=== PATIENT | male | born 1955 | race Two or more races ===

== ENCOUNTER 2017-10-22 08:05 | Observation (INO) | payer BC ==
[2017-10-22] MEDS ORDERED: Diazepam TAB(*) 5 MG ONE (08:55)
[2017-10-22] MEDS ORDERED: diPHENhydraMINE PO* 25 MG ONE (08:55)
[2017-10-22] MEDS ORDERED: fentaNYL* 50 MCG/ML 2 ML VIAL (100 MCG VIAL) ONE (09:22)
[2017-10-22] MEDS ORDERED: Lidocaine 1% INJ* 10 MG/ML 30 ML SDV ONE (09:23)
[2017-10-22] MEDS ORDERED: Heparin 2 UNITS/ML IVPREMIX* 3,000 ML IV ONE (09:23)
[2017-10-22] MEDS ORDERED: Midazolam* 1 MG/ML 10 ML VIAL (10 MG) ONE (09:24)
[2017-10-22] MEDS ORDERED: Heparin(*) 1000 UNIT/ML 10 ML VIAL CATH LAB IV ONE (09:25)
[2017-10-22] MEDS ORDERED: VERAPAMIL 2.5 MG/ML 2 ML VIAL ** 5 mg/2 ml ONE (09:25)
[2017-10-22] MEDS ORDERED: nitroGLYCERIN DRIP* 25,000 MCG/250 ML BTL ONE (09:26)
[2017-10-22] MEDS ORDERED: Iodixanol* (CONTRAST) 320 MG/ML 100 ML SDV ONE ×3 (09:26→10:48)
[2017-10-22] MEDS ORDERED: Ticagrelor* 90 MG TAB PO ONE (10:06)
[2017-10-22] MEDS ORDERED: Bivalirudin(*) 250 MG VIAL ONE ×2 (10:17→10:19)
[2017-10-22] MEDS ORDERED: NS 0.9% 1000 ML* 2,000 ML IV ONE (11:29)
[2017-10-22] MEDS ORDERED: Acetaminophen TAB* 325 MG PO PRN (11:29)
[2017-10-22] MEDS ORDERED: Docusate CAP* 100 MG PO PRN (11:29)
[2017-10-22] MEDS ORDERED: Nitroglycerin TAB 0.4 MG* 0.4 MG TAB SL PRN (11:29)
[2017-10-22] MEDS ORDERED: Ondansetron INJ* 2 MG/ML VIAL IV PRN (11:29)
[2017-10-22] MEDS ORDERED: Atorvastatin* 80 MG TAB PO ONE (11:53)
[2017-10-22] MEDS ORDERED: Atorvastatin* 80 MG TAB PO SCH (17:00)
[2017-10-22] MEDS: Ticagrelor* 90 MG TAB PO SCH (20:31)
[2017-10-23 05:13] LABS: ABS Basophils 0 10^3/ul (0-0.2); ABS Eosinophils 0.1 10^3/ul (0-0.6); ABS Lymphocytes 1.4 10^3/ul (1.0-4.8); ABS Monocytes 0.7 10^3/ul (0-0.8); ABS Neutrophils 6.6 10^3/ul (1.5-7.7); ABS Nucleated RBC 0 10^3/ul; Eosinophil % 1.4 % (0-6); Hematocrit 42 % (42-52); Lymphocyte % 15.4 % (25-47); Mean Corpuscular HGB Conc 35 g/dl (31-36); Mean Corpuscular Hemoglobin 30 pg (27-31); Mean Corpuscular Volume 85 fL (80-94); Mean Platelet Volume 8.9 um3 (7.4-10.4); Nucleated Red Blood Cells % 0.2; Platelet Count 171 10^3/ul (150-450); Red Blood Count 5.01 10^6/ul (4.0-5.4); Red Cell Distribution Width 13 % (10.5-15); White Blood Count 8.8 10^3/ul (3.5-10.8)
[2017-10-23 05:35] LABS: EGFR Non-African American 62.1 (>60)
[2017-10-23] MEDS ORDERED: Omeprazole CAP* 20 MG PO SCH (07:30)
[2017-10-23] MEDS ORDERED: Metoprolol Succinate XL TAB* 25 MG PO SCH (09:00)
[2017-10-23] MEDS ORDERED: Captopril TAB* 12.5 MG PO SCH (09:00)
[2017-10-23] MEDS ORDERED: Aspirin 81 mg CHEW TAB* 81 MG TAB.CHEW PO SCH (09:00)
[2017-10-23] MEDS: Ticagrelor* 90 MG TAB PO SCH (09:05)
[2017-10-23 11:11] VITALS: BP 123/72
--- NOTE | 2017-10-24 03:28 | CATH ---
Cc: Dr. Harish Campbell; Dr. Rodolfo Muhammad. CARDIAC CATHETERIZATION AND INTERVENTIONAL REPORT: DATE OF PROCEDURE: 10/22/2017 INDICATION FOR THE PROCEDURE: The patient with progressive chest discomfort with markedly abnormal resting echocardiogram suggesting anterior wall hypokinesis with EF 30% to 35% now for cardiac catheterization to assess for the presence of underlying coronary artery disease. The procedure was left heart catheterization, left ventriculography, coronary arteriography, primary stenting of proximal left anterior descending artery with a 4.0 x 20 mm long Synergy drug-eluting stent and balloon angioplasty and placement of a 2.25 x 20 mm long Synergy drug-eluting stent in the first obtuse marginal branch. The patient was interviewed and examined in the holding area where the risks and benefits were explained. He understood them and wished to proceed. APPROACH: Under ultrasound assessment in the holding area, the right radial artery was found to be acceptable as an approach. EQUIPMENT UTILIZED: 1. Right radial artery sheath, a 6-Tristanian Glidesheath. 2. Diagnostic coronary catheters included a 5-Tristanian TIG4 catheter and a 5- Tristanian FL 3.5 curved JL diagnostic catheter. 3. Left heart catheterization catheter, a 5-Tristanian PIG Performa radial catheter. 4. Exchange wire with a Duran curved 260 cm length exchange wire. 5. Interventional guide catheter was a 6 Tristanian IL 3.5 Heartrail III catheter, a 6- Tristanian LBU 3.5 catheter, and a 6-Tristanian VL 3.5 catheter. 6. Interventional guidewire was a All Star 190 length guidewire. 7. Predilation for obtuse marginal branch balloon - a NC Emerge 2.0 x 12 mm balloon catheter. 8. Stents placed - a 2.25 x 20 mm long Synergy stent in first obtuse marginal branch, a 4.0 x 20 mm long Synergy stent in proximal LAD. 9. Post stent deployment balloon inflation catheters, a 4.0 x 12 mm long NC Emerge balloon, a 2.25 x 12 mm long NC Emerge balloon. MEDICATIONS GIVEN: Included: 1. Radial artery cocktail including 3000 units of heparin, 3 mg of Verapamil and 300 mcg of nitroglycerin intraarterial. 2. Brilinta 180 mg orally. 3. Angiomax bolus and Angiomax drip. 4. Intracoronary nitroglycerin. DESCRIPTION IN DETAIL: The patient was brought into the cardiovascular laboratory where a formal time-out was performed. He was prepped and draped in sterile fashion. The right radial artery area was anesthetized with 1% lidocaine and under ultrasound guidance the right radial artery was entered and the Glidesheath was placed. Diagnostic coronary arteriography was performed utilizing the 5 Tristanian TIG4 and the 5-Tristanian FL 3.5 curve Shabnam left coronary catheter. Following this, left heart catheterization was performed utilizing the 5-Tristanian pigtail catheter and left ventriculography was performed utilizing a total 26 cc of Visipaque dye at a rate of 13 cc per second. Following this, decision was made to intervene into the left coronary artery, proximal LAD, and first obtuse marginal branch. The patient's ACT was checked and found to be subtherapeutic and as such an Angiomax bolus and Angiomax drip was started. The patient received Brilinta therapy. Guiding views were obtained initially with the Heartrail IL 3.5 curved catheter. This was then exchanged for 6- Tristanian LBU 3.5 curved catheter, the All Star wire was advanced down the left anterior descending artery and the Synergy 4.0 x 20 mm long drug- eluting stent was deployed with post-deployment inflation made utilizing the NC Emerge balloon 4.0 x 12 mm with high pressures. Following this, the guide catheter was exchanged for the Heartrail 6 Tristanian IL 3.5 catheter. The All Star wire was advanced into the diagonal branch. Nitroglycerin was given and following this the NC Emerge 2.0 x 12 mm long balloon was inserted into the first obtuse marginal branch and balloon angioplasty was performed followed by the 2.25 x 20 mm long Synergy drug-eluting stent post-dilated with a 2.25 x 12 mm long NC Emerge balloon to high pressures. The artery was then assessed for final result. Following this, the guide catheter was removed. On removing the sterile dressing over the right radial artery, the right radial artery sheath was inadvertently pulled out and immediate pressure was placed. The Vasc-Band was then able to be placed for hemodynamic control, the reverse Barbnikki. The total contrast used was 250 cc of Visipaque dye, the radiation exposure included 34.5 minutes of fluoro time, the air kerma radiation was 2990 milligray. The DAP radiation was 18,122 microgray per meter square. RESULTS: HEMODYNAMIC DATA: Left heart catheterization: Central aortic pressure recorded 122/74 with a mean in 94, left ventricular pressure 120, left ventricular end diastolic pressure was 19. LEFT VENTRICULOGRAPHY: Performed in the RICE projection revealed moderate global hypokinesis to the mid and distal anterior wall and apical region. There is preservation of the inferior wall. The overall ejection fraction appeared to be approximately 40%. CORONARY ARTERIOGRAPHY: A. Right coronary artery - the right coronary artery was a dominant vessel supplying to PDA and a thin first posterior left ventricular branch. The proximal portion of the right coronary artery had a 35% to 40% obstruction noted. The mid segment had a 35% narrowing noted. The proximal portion of the posterior descending artery had a 35% to 40% narrowing noted. B. Left coronary artery: 1. Left main - short nature and widely patent. 2. Left anterior descending artery - the left anterior descending artery had diffuse disease in its proximal section tapering to a 90% obstruction. Past this point in the left anterior descending artery, there was mild post obstruction dilatation, then tapering to the same caliber as the rest of the left anterior descending artery. The first diagonal branch was a bifurcating vessel as well as the second diagonal branch there was no significant disease seen within those vessels. 3. Circumflex artery - a nondominant artery supplying a first obtuse marginal branch which bifurcated in its proximal portion to a thin lower branch and a larger superior branch which bifurcated in its distal portion. There was a long segment of 95% stenosis in the proximal portion. The continuation of the circumflex supplied several small caliber vessels ending in moderate sized low lying obtuse marginal branch which had an area of 65% to 70% stenosis seen. INTERVENTIONS TO PROXIMAL LEFT ANTERIOR DESCENDING ARTERY: Successful reduction of critical 90% blockage with primary stenting and placement of a 4.0 x 20 mm long Synergy drug-eluting stent dilated to 4.2 mm with BRENT-3 flow, 0% residual stenosis, no dissection seen. INTERVENTION INTO FIRST OBTUSE MARGINAL BRANCH: Successful reduction of critical long 95% proximal stenosis with balloon angioplasty and placement of a 2.25 x 20 mm long Synergy drug-eluting stent postdilated to 2.3 to 2.35 mm with no dissection seen, 0% residual stenosis. OVERALL ASSESSMENT: Moderate left ventricular systolic dysfunction, focal in nature to the anterior wall with successful intervention into the proximal LAD as well as first obtuse marginal branch. Of note, the low lying obtuse marginal branch had a lesion that may indeed be significant but at this point in time, this will be treated medically with followup with Dr. Campbell with consideration for either stress testing or FFR guided intervention. The patient's beta-kerri will be continued and institution of low-dose SAMANTHA inhibitor will be started as well. Followup will be with Dr. Harish Campbell, the patient's primary senior sales manager. [id number]/[facility] #: [id number] [facility]
--- NOTE | 2017-10-24 07:18 | DS ---
CC: Dr. Harish campbell; Dr. Muhammad DISCHARGE SUMMARY: DATE OF ADMISSION: 10/22/17. DATE OF DISCHARGE: 10/23/17. FINAL DIAGNOSIS: Acute coronary syndrome. SECONDARY DIAGNOSES: Include: 1. Stenotic coronary artery disease. 2. Gastroesophageal reflux. DISCHARGE MEDICATIONS: 1. Aspirin 81 mg a day. 2. Atorvastatin 80 mg once a day. 3. Captopril 6.25 mg twice a day. 4. Desmopressin 0.1 mg at bedtime. 5. Krill oil 500 mg a day. 6. Metoprolol succinate 25 mg once a day. 7. Nitroglycerin as needed. 8. Omeprazole 20 mg capsules daily. 9. Ticagrelor 90 mg twice a day. HOSPITAL COURSE: The patient is a pleasant 62-year-old gentleman, known to our group through Dr. Sudhakar Campbell, who had evaluated him for symptoms suggestive of progressive angina pectoris and original ly a stress echo was scheduled. However, the resting images on echocardiography showed the presence of anterior wall motion abnormality and overall ejection fraction in the 30 to 35% range. Given this , he was referred for cardiac catheterization. Cardiac catheterization was performed on 10/22/17 demonstrating a moderate left ventricular systolic dysfunction EF better at approximately 40% with moderate hypokinesis of the anterior and apical regio n. His coronary arteries revealed a diffusely diseased proximal LAD with its most severe segment santy ng approximately 90% stenosed. The first obtuse marginal branch had a proximal somewhat long segment of 95% stenosis. The distal circumflex showed a 65% to 70% blockage at the beginning of last low ly ing obtuse marginal branch. The right coronary artery had mild to moderate proximal disease. He underwent successful stenting to the proximal LAD with a 4.0 x 20 mm long Synergy drug-eluting matthew nt post dilated to 4.2 mm and the first obtuse marginal branch undergoing balloon angioplasty and matthew nting with a 2.25 x 20 mm long Synergy drug-eluting stent post dilated to 2.3 to 2.35 mm. He was up and about and captopril therapy was added low dose 6.25 twice a day to be titrated as an outpatient b samina Campbell. PHYSICAL EXAMINATION: On the day of discharge, vital signs revealed blood pressure 123/72, pulse was 64 and regular, respirations 22, O2 saturation 95% on room air. Neck was supple. There was no incre ased JVP. Carotid with good upstroke and volume without bruits. Conjunctivae are pink. Sclerae elodia ar. Lungs reveal no accessory muscle usage. There was good excursion. Lungs were clear to A and P. Heart reveals no visible heaves, no palpable heaves or thrill. Normal S1 and S2 with no significant systolic or diastolic murmur. Abdomen was soft, nontender. Extremities without edema. Neuro: The patient is alert, oriented with normal mentation. Musculoskeletal: The patient walks with normal ga it. Psychiatric: The patient with normal affect. The right radial artery area was well healed and h e had excellent antegrade flow down it. LABORATORY DATA: Laboratory results on the day of discharge, hemoglobin and hematocrit of 15 and 42, with a platelet count 171,000. Sodium 137, potassium 3.9, chloride 106, bicarb 24. BUN and creatin ine of 17 and 1.18. Of note, his pre cath creatinine was 1.24. EKG done on the day of discharge von wed sinus rhythm, heart rate 63. There were biphasic T-waves in V3 and V4 and T-wave inversion in aV L. These changes were less than the prior EKG precardiac catheterization. He has a scheduled follow up appointment with Dr. Harish Campbell on 10/30/17 at 8:30 a.m., at the [facility]. Ongoing cardiac management will be under the guidance of Dr. Harish Segura and, his primary data communications software consultant. [id number]/[facility] #: [id number]
== END 2017-10-23 11:45 | disposition home or self-care (01) ==
LOC: CHICATH 08:05 → INTOOBSV 10:24 → ICU 10:24
PROVIDERS: ADMIT Internal Medicine Cardiovascular Disease; ATTEND Internal Medicine Cardiovascular Disease
DX: I25.10 Atherosclerotic heart disease of native coronary artery without angina pectoris (principal); K21.9 Gastro-esophageal reflux disease without esophagitis; Z79.82 Long term (current) use of aspirin
CPT/HCPCS: 36415; 76937; 80053; 80061; 85025; 87641; 93005; 93458; A9270-GY; C1725; C1769; C1876; C1887; C9600-LD; C9601-LC; G0378; J0583; J1644; J2250; J3010

== ENCOUNTER → 2018-03-20 03:45 | Emergency (ER) | payer BC ==
[~2018-03-20 03:45] MED LIST: Ciprofloxacin 0.3% OPTH.SOL* 2.5 ML BTL ONE; Ciprofloxacin 0.3% OPTH.SOL* 2.5 ML BTL RIGHT EYE ONE; Fluorescein Sodium TOPICAL* 1 MG TEST STRIP ONE; Fluorescein Sodium TOPICAL* 1 MG TEST STRIP OPHTHALMIC ONE; Tetracaine 0.5% OPTH.SOL 4 ML* 1 DROP BTL ONE; Tetracaine 0.5% OPTH.SOL 4 ML* 1 DROP BTL RIGHT EYE ONE
--- NOTE | 2018-03-20 04:28 | ED ---
Throat Pain/Nasal Congestion - HPI Summary HPI Summary: This patient is a 62 year old M presenting to [facility] with a chief complaint of right eye pain since 2-3 weeks ago. The patient reports that the pain began after he was hit in the eye by a burdock seed. Patient reports that the pain has worsened since yesterday. The patient rates the pain 2/10 in severity. Symptoms aggravated by wearing contacts. Symptoms alleviated by nothing. Pt reports hx of eye irritation from an ingrown eyelash but notes he is unsure which eye it was. Patient reports that his pain is similar to when he had the ingrown eyelash. - History of Current Complaint Chief Complaint: EDEyeProblem Time Seen by Provider: 03/20/18 04:07 Hx Obtained From: Patient Onset/Duration: Gradual Onset, Lasting Weeks - 2-3 weeks, Still Present, Worse Since - 1 day ago Severity: Mild - Allergies/Home Medications Allergies/Adverse Reactions: Allergies Allergy/AdvReac Type Severity Reaction Status Date / Time No Known Allergies Allergy Verified 10/21/17 15:29 PMH/Surg Hx/FS Hx/Imm Hx Endocrine/Hematology History: Denies: Hx Diabetes, Hx Thyroid Disease Cardiovascular History: Denies: Hx Hypertension Respiratory History: Denies: Hx Asthma, Hx Chronic Obstructive Pulmonary Disease (COPD) GI History: Reports: Hx Gastroesophageal Reflux Disease - ON MEDICATION FOR Denies: Hx Ulcer History: Reports: Other Problems/Disorders - trace blood in urine for years - sees urologist Comment Only: Hx Benign Prostatic Hyperplasia - removed d/t cancer Musculoskeletal History: Reports: Hx Arthritis - RIGHT SHOULDER>LEFT, not issues in years, Other Musculoskeletal History - right wrist "slac" diagnosis Denies: Hx Rheumatoid Arthritis, Hx Osteoporosis Sensory History: Reports: Hx Contacts or Glasses, Hx Hearing Problem - [place] Denies: Hx Hearing Aid Opthamlomology History: Reports: Hx Contacts or Glasses Neurological History: Reports: Other Neuro Impairments/Disorders - RIGHT WRIST NERVE SEVERED-1989 Psychiatric History: Reports: Hx Depression - SLIGHT AT TIMES, hx was taking zoloft Denies: Hx Substance Abuse - Cancer History Cancer Type, Location and Year: protaste cancer dx in 2010 Hx Chemotherapy: No Hx Radiation Therapy: No Hx Palliative Cancer Treatment: No - Surgical History Surgery Procedure, Year, and Place: 1989 wrist repair, 1993 acl repair. right and left inguinal hernia repair. prostate surgery 2011 Hx Anesthesia Reactions: No Infectious Disease History: No Infectious Disease History: Reports: Hx Shingles - 5 years ago Denies: Hx Clostridium Difficile, Hx Hepatitis, Hx Human Immunodeficiency Virus (HIV), Traveled Outside the [place] in Last 30 Days - Family History Known Family History: Negative: Diabetes - Social History Alcohol Use: None Substance Use Type: Reports: None Smoking Status (MU): Never Smoked Tobacco Review of Systems Negative: Fever ENT: Other - right eye pain Negative: Cough Negative: Vomiting Negative: Rash All Other Systems Reviewed And Are Negative: Yes Physical Exam - Summary Physical Exam Summary: GENERAL: Patient is a well-developed and nourished M who is lying comfortable in the stretcher. Patient is not in any acute respiratory distress. HEAD AND FACE: Normocephalic EYES: PERRLA, EOMI x 2. Epithelial tissue growth on lateral aspect of conjunctiva. No corneal abrasion with fluorescein. No foreign body when eyelid inverted. Eye pressure is 21. EARS: Hearing grossly intact. MOUTH: Oropharynx within normal limits. NECK: Supple, trachea is midline, no adenopathy, no JVD, no carotid bruit. CHEST: Symmetric, no tenderness at palpation LUNGS: Clear to auscultation bilaterally. No wheezing or crackles. CVS: Regular rate and rhythm, S1 and S2 present, no murmurs or gallops appreciated. ABDOMEN: Soft, non-tender. Bowel sounds are normal. No abdominal abnormal pulsations. EXTREMITIES: Full ROM in all major joints, no edema, no cyanosis or clubbing. NEURO: Alert and oriented x 3. No acute neurological deficits. Speech is normal and follows commands. SKIN: Dry and warm Triage Information Reviewed: Yes Vital Signs On Initial Exam: Initial Vitals Temp Pulse Resp BP Pulse Ox 98.7 F 56 16 148/89 99 03/20/18 03:49 03/20/18 03:49 03/20/18 03:49 03/20/18 03:49 03/20/18 03:49 Vital Signs Reviewed: Yes Procedures - Procedure Summary Procedure Summary: In right eye tonopen exam his pressure was found to be 21. Diagnostics - Vital Signs Vital Signs Temp Pulse Resp BP Pulse Ox 03/20/18 03:49 98.7 F 56 16 148/89 99 - Laboratory Lab Statement: Any lab studies that have been ordered have been reviewed, and results considered in the medical decision making process. EENT Course/Dx - Course Course Of Treatment: This patient is a 62 year old M presenting to [facility] with a chief complaint of worsening right eye pain since 2-3 weeks ago. Workup remarkable with epithelial tissue growth on later aspect of conjunctiva, no corneal abrasion with fluorescein, no foreign body when eyelid inverted, eye pressure is 21 from tonopen exam. The patient will be discharged. I discussed results with patient and he reports feeling better. He is hemodynamically stable and safe for discharge. Strict return precautions given and he will otherwise follow up with his PCP and Dr. Valdovinos, opthamologist. - Diagnoses Provider Diagnoses: Eye discomfort Discharge - Sign-Out/Discharge Documenting (check all that apply): Patient Departure - discharge home - Discharge Plan Condition: Stable Disposition: HOME Prescriptions: Ciprofloxacin 0.3% OPTH.YOEL* [Cipro 0.3% Opth*] 1 drop RIGHT EYE Q2H #1 btl Patient Education Materials: Pterygium (ED) Referrals: Rodolfo Muhammad MD [Primary Care Provider] - 1 Day [place] Valdovinos MD [Medical Doctor] - 1 Day Additional Instructions: Follow up with Dr. Valdovinos, opthamologist, in 1-3 days. Return to emergency department with any new or worsening symptoms. - Billing Disposition and Condition Condition: STABLE Disposition: Home - Attestation Statements Document Initiated by Susanaibe: Yes Documenting Scribe: Lois Stephenson Provider For Whom Melina is Documenting (Include Credential): Sandi Rosenberg MD Scribe Attestation: Lois Bermudez scribed for Sandi Rosenberg MD on 03/21/18 at 0344. Scribe Documentation Reviewed: Yes Provider Attestation: The documentation as recorded by the Lois beltran accurately reflects the service I personally performed and the decisions made by me, Silvia Rosenberg MD
--- OUTSIDE RECORDS SUMMARY | 2018-03-20 05:12 | XMS REPORT ---
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 Active Onset: 09/03/2017 History of malignant neoplasm of Rodolfo Muhammad M.D. Active prostate Onset: 04/14/2014 Brachial neuritis Rodolfo Muhammad M.D. Active Onset: 08/24/2013 Gastroesophageal reflux disease Rodolfo Muhammad M.D. Active Onset: 08/28/2011 Inguinal hernia without obstruction Rodolfo Muhammad M.D. Active AND without gangrene Onset: 03/19/2011 Depressive disorder Rodolfo Muhammad M.D. Active Onset: 02/28/2011 Diarrhea Lobo Tobar M.D. Active Onset: 02/28/2011 Increased frequency of urination Lobo Tobar M.D. Active Family History Date Family Member(s) Problem(s) Comments Father Coronary Artery Disease (CAD) Father Dementia Mother Congestive Heart Failure (CHF) Mother Diabetes Mellitus, II Mother Dementia Social History Type Date Description Comments Cigarette Use Nonsmoker ETOH Use Rare Smoking Patient has never smoked Daily Caffeine Consumes on average 1 cup of coffee per day Exercise Type/Frequency Current Exercises sporadically Allergies, Adverse Reactions, Alerts Date Description Reaction Status Severity Comments 12/23/2010 NKDA active Medications Medication Date Status Form Strength Qnty SIG Indications Ordering Provider Loratadine 02/18/ Active Tablets 10mg 30tab Take one H65.02 Elena Abel 2018 s by mouth Marshall, daily 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 every day Desmopressin / Active 1 po qhs Unknown Acetate 0000 Krill Oil / Active Capsules 1 po qd Unknown 0000 Aspirin 81 Low / Active Chewtabs 81mg 1 by Unknown Dose 0000 mouth every day Brilinta / Active Tablets 90mg 1 by Unknown 0000 mouth twice a day Captopril / Active Tablets 12.5mg 1/2 Unknown 0000 tablet by mouth twice a day Metoprolol / Active Tablets 25mg 1 by Unknown Tartrate 0000 mouth twice a day Atorvastatin / Active Tablets 80mg 1 by Unknown Calcium 0000 mouth every day Cephalexin 01/18/ Hx Capsules 500mg 20cap 1 po bid Jackelin 2012 - s Roseline, 01/28/ Afnp-C 2012 Sulfamethoxazol 10/21/ Hx Tablets 800-160mg 20tab 1 po bid Rodolfo A. e/Trimethoprim 2011 - s Jb, DS 10/31/ M.D. 2012 Ciprofloxacin 10/20/ Hx Tablets 500mg 20tab 1 po bid Rodolfo A. HCL 2011 - s x 10 days Darty, 10/21/ M.D. 2011 Sertraline HCL 03/19/ Hx Tablets 100mg 45tab 1/2 po qd Rodolfo AAna 2010 - s Darty, 10/19/ M.D. 2013 Macrobid 02/28/ Hx Capsules 100mg 20cap 1 po bid 788.41 Lobo Taylor 2010 - s Midura, 03/19/ M.D. 2010 Sertraline 04/03/ Hx 25mg 60uni 1 po qd x 780.79 Rodolfo AAna 2008 - ts 1 week, Jb, 07/12/ then M.D. 2009 increase to 2 po qd Desmopressin 11/10/ Hx Tabs 0.2mg 90tab Take 3 Lois Acetate 2006 - s Tablets von Felten, M.D. 2010 Bedtime Desmopressin 05/27/ Hx Tablets 0.2Mgapo 90tab 3 po qhs Lois Lewis 2006 - s mayte Fitzgerald, M.D. 2006 Doxazosin 05/27/ Hx Tablets 4mg 30tab 1 po qd Lois 2006 - s mayte Fitzgerald, M.D. 2008 Cartia XT 05/27/ Hx Capsules 120mg 30cap 1 PO qd Lois 2006 - s mayte Fitzgerald, M.D. 2010 Wellbutrin XL 05/27/ Hx Tablets 150mg 30tab 1 PO qd Lois 2006 - s mayte Fitzgerald, M.D. 2008 Vitamin B6 05/27/ Hx Tablets 100mg [facility] 2007 - [facility] [place] Vitamin E 10/ Hx Capsules 400Units 0caps 1 PO qd [facility] 2006 - [facility] 04/03/ [facility] [place] Prilosec / Hx 1 po qd Unknown - 2011 Vesicare 00/ Hx Tablets 10mg 1 po qd Unknown - 2011 Cialis 00/ Hx Tablets 2.5mg 1 po qd Unknown - 2011 Omeprazole 00/ Hx Capsules 30cap 1 po qd Unknown 0000 - DR mosquera 2012 [facility] 00/ Hx Tablets 20mg 1 po qd Unknown - 2016 Aspirin Ec / Hx Tablets DR 325mg 1/2 po qd Unknown 0000 - 2017 Vitamin D / Hx Capsules 1000Unit 100ca 1 po qd Unknown 0000 - ps 2012 L-Carnosine /00/ Hx Tablet Unknown - 2013 L-Carnitine /00/ Hx Capsules 1 po qd Unknown - 2013 Immunizations CPT Code Status Date Vaccine Lot # [id number] Given 04/14/2014 Influenza Vac, Quadrivalent, Slit Virus, Im [id number] Given 03/19/2011 DO Not Use Split Influenza Virus Vaccine [id number] Given 04/03/2009 Tdap Tetanus, W Pertussis [id number] Vital Signs Date Vital Result Comment 02/18/2018 BP Systolic 110 mmHg BP Diastolic 62 mmHg Heart Rate 64 /min Body Temperature 98.1 F Respiratory Rate 16 /min Height 72.5 inches 6'0.50" Weight 223.00 lb BMI (Body Mass Index) 29.8 kg/m2 11/09/2017 BP Systolic 122 mmHg BP Diastolic 90 mmHg Heart Rate 64 /min Body Temperature 98.6 F Height 72.5 inches 6'0.50" Weight 225.00 lb BMI (Body Mass Index) 30.1 kg/m2 09/03/2017 BP Systolic 140 mmHg BP Diastolic 84 mmHg Heart Rate 78 /min Body Temperature 98.4 F Respiratory Rate 16 /min Height 72.5 inches 6'0.50" Weight 227.00 lb BMI (Body Mass Index) 30.4 kg/m2 01/28/2017 BP Systolic 124 mmHg BP Diastolic 76 mmHg Heart Rate 72 /min Body Temperature 98.4 F Respiratory Rate 15 /min Height 72.5 inches 6'0.50" Weight 217.00 lb BMI (Body Mass Index) 29.0 kg/m2 08/17/2015 BP Systolic 116 mmHg BP Diastolic 74 mmHg Heart Rate 78 /min Body Temperature 98.4 F Respiratory Rate 15 /min Height 72.5 inches 6'0.50" Weight 223.50 lb BMI (Body Mass Index) 29.9 kg/m2 02/09/2015 BP Systolic 120 mmHg BP Diastolic 80 mmHg Heart Rate 80 /min Body Temperature 98.6 F Respiratory Rate 18 /min Height 72.5 inches 6'0.50" Weight 216.00 lb BMI (Body Mass Index) 28.9 kg/m2 01/25/2015 BP Systolic 110 mmHg BP Diastolic 70 mmHg Heart Rate 68 /min Body Temperature 97.2 F Respiratory Rate 16 /min Height 72.5 inches 6'0.50" Weight 219.00 lb BMI (Body Mass Index) 29.3 kg/m2 11/27/2014 BP Systolic 130 mmHg BP Diastolic 90 mmHg Heart Rate 84 /min Body Temperature 98.5 F Respiratory Rate 16 /min Height 72.5 inches 6'0.50" Weight 217.00 lb BMI (Body Mass Index) 29.0 kg/m2 04/14/2014 BP Systolic 138 mmHg BP Diastolic 76 mmHg Heart Rate 66 /min Body Temperature 98.0 F Respiratory Rate 16 /min Height 73 inches 6'1" Weight 224.50 lb BMI (Body Mass Index) 29.6 kg/m2 09/22/2013 BP Systolic 130 mmHg BP Diastolic 80 mmHg Heart Rate 68 /min Body Temperature 98.5 F Respiratory Rate 16 /min Height 73 inches 6'1" Weight 220.00 lb BMI (Body Mass Index) 29.0 kg/m2 08/24/2013 BP Systolic 130 mmHg BP Diastolic 90 mmHg Heart Rate 60 /min Body Temperature 96.7 F Respiratory Rate 12 /min Height 73 inches 6'1" Weight 223.00 lb BMI (Body Mass Index) 29.4 kg/m2 01/18/2013 BP Systolic 132 mmHg BP Diastolic 78 mmHg Heart Rate 68 /min Body Temperature 97.6 F Height 72.25 inches 6'0.25" Weight 219.00 lb BMI (Body Mass Index) 29.5 kg/m2 12/28/2012 BP Systolic 112 mmHg BP Diastolic 72 mmHg Heart Rate 60 /min Body Temperature 97.5 F Respiratory Rate 16 /min Height 72.25 inches 6'0.25" Weight 221.00 lb BMI (Body Mass Index) 29.8 kg/m2 10/19/2012 BP Systolic 126 mmHg BP Diastolic 80 mmHg Heart Rate 80 /min Body Temperature 97.8 F Respiratory Rate 18 /min Height 72.25 inches 6'0.25" Weight 234.00 lb BMI (Body Mass Index) 31.5 kg/m2 06/02/2012 BP Systolic 110 mmHg BP Diastolic 74 mmHg Heart Rate 68 /min Body Temperature 96.6 F Respiratory Rate 12 /min Height 72.25 inches 6'0.25" Weight 234.00 lb BMI (Body Mass Index) 31.5 kg/m2 11/20/2011 BP Systolic 116 mmHg BP Diastolic 80 mmHg Heart Rate 68 /min Body Temperature 98.4 F Respiratory Rate 20 /min Height 72.25 inches 6'0.25" Weight 228.00 lb BMI (Body Mass Index) 30.7 kg/m2 10/20/2011 BP Systolic 130 mmHg BP Diastolic 86 mmHg Heart Rate 64 /min Body Temperature 97.5 F Respiratory Rate 16 /min Height 72.25 inches 6'0.25" Weight 227.00 lb BMI (Body Mass Index) 30.6 kg/m2 08/28/2011 BP Systolic 110 mmHg BP Diastolic 78 mmHg Heart Rate 56 /min Body Temperature 98.3 F Respiratory Rate 16 /min Height 72.25 inches 6'0.25" Weight 218.00 lb BMI (Body Mass Index) 29.4 kg/m2 03/19/2011 BP Systolic 120 mmHg BP Diastolic 90 mmHg Heart Rate 62 /min Body Temperature 97.1 F Respiratory Rate 16 /min O2 % BldC Oximetry 98 % Height 72.25 inches 6'0.25" Weight 218.00 lb BMI (Body Mass Index) 29.4 kg/m2 03/08/2011 BP Systolic 120 mmHg BP Diastolic 80 mmHg Heart Rate 68 /min Body Temperature 98.1 F Respiratory Rate 15 /min Height 72.25 inches 6'0.25" Weight 219.00 lb BMI (Body Mass Index) 29.5 kg/m2 02/28/2011 BP Systolic 116 mmHg BP Diastolic 78 mmHg Heart Rate 72 /min Body Temperature 98.1 F Height 72.25 inches 6'0.25" Weight 215.00 lb BMI (Body Mass Index) 29.0 kg/m2 12/23/2010 BP Systolic 132 mmHg BP Diastolic 82 mmHg Heart Rate 72 /min Body Temperature 97.8 F Respiratory Rate 16 /min Height 72.25 inches 6'0.25" Weight 219.00 lb BMI (Body Mass Index) 29.5 kg/m2 Right Visual Acuity Distance 20/20 Left Visual Acuity Distance 20/40 04/03/2009 BP Systolic 110 mmHg BP Diastolic 70 mmHg Heart Rate 56 /min Body Temperature 98.1 F Respiratory Rate 12 /min Height 73 inches 6'1" Weight 216.00 lb BMI (Body Mass Index) 28.5 kg/m2 11/23/2006 BP Systolic 110 mmHg BP Diastolic 70 mmHg Heart Rate 68 /min Body Temperature 98.4 F Height 73 inches 6'1" Weight 202.00 lb BMI (Body Mass Index) 26.6 kg/m2 05/27/2006 BP Systolic 128 mmHg BP Diastolic 66 mmHg Heart Rate 68 /min Height 73 inches 6'1" Weight 217.00 lb BMI (Body Mass Index) 28.6 kg/m2 Results Test Date Test Result H/L Range Note Lipid Profile 12/11/2017 Cholesterol 119 mg/dL Low 120-200 Triglycerides 80 mg/dL 30-200 HDL Cholesterol 48 mg/dL 30-70 LDL (Calculated) 55 CALC 0-129 VLDL Cholesterol 16 mg/dL 0-50 HDL Risk Factor 2.5 CALC 0.0-4.4 Laboratory test finding 12/11/2017 Alt (SGPT) 32 U/L 7-35 1 CBC Electronic ([facility] New) 09/03/2017 WBC 6.08 4.0-10.0 RBC 4.99 3.93-6.0 Hemoglobin (Fma/CMC/CTX) 15.0 g/dL 12.0-17.0 Hematocrit (Fma/CMC/CTX) 41.4 % 35.0-50.0 Mean Corpuscular Vol 83.0 fL 80-95 Mean Corpuscular Hemoglobin 30.1 pg 25.6-32.2 Mean Corpuscular Hemo Concen 36.2 g/dL High 32.2-36.0 Platelets 215 10^3/ul 163-400 RDW-CV 12.7 11.6-14.4 Mean Platelet Volume 10.2 fL 9.4-12.4 Absolute Neutrophils BLD 4.16 1.56-6.13 Absolute Lymphocytes 1.25 1.18-3.74 Absolute Monocytes BLD Auto 0.43 0.24-0.82 Absolute Eos Blood 0.18 0.04-0.54 Absolute Basophils 0.04 0.01-0.08 Neutrophil % 68.3 34.0-70.0 Lymph% 20.6 % 20.0-52.0 Monocytes % 7.1 % 5.0-12.0 Eos % 3.0 % 0.7-7.0 Basophil% 0.7 % 0.1-1.2 Laboratory test finding 09/03/2017 HCV AB neg negative Lipid Profile 09/03/2017 Cholesterol 178 mg/dL 120-200 Triglycerides 255 mg/dL High 30-200 HDL Cholesterol 42 mg/dL 30-70 LDL (Calculated) 85 CALC 0-129 VLDL Cholesterol 51 mg/dL High 0-50 HDL Risk Factor 4.2 CALC 0.0-4.4 Comprehensive Metabolic Prof 09/03/2017 Sodium 141 mEq/L 134-149 Potassium 4.4 mEq/L 3.6-5.5 Chloride 103 mEq/L 94-112 Carbon Dioxide 24 mEq/L 21-32 Glucose 110 mg/dL High 70-105 2 BUN 17 mg/dL 6-26 Creatinine 1.1 mg/dL 0.6-1.4 BUN/Creat Ratio 15.5 CALC 8.0-36.0 Calcium 9.2 mg/dL 8.6-10.2 Total Protein 7.2 g/dL 6.4-8.3 Albumin 4.6 g/dL 3.8-5.5 Globulin 2.6 g/dL 2.0-4.8 A/G Ratio 1.8 CALC 0.6-2.3 Alk. Phosphatase 55 U/L 22-95 Alt (SGPT) 38 U/L High 7-35 3 Ast (Sgot) 24 U/L 5-34 Total Bilirubin 0.5 mg/dL 0.2-1.3 GFR Non- >60 ml/min/1.73m^ >=60 GFR >60 ml/min/1.73m^ >=60 Laboratory test finding 09/03/2017 PSA <0.1 ng/mL Low 0.0-4.0 4 LDL, Direct 109 mg/dL 0-130 Laboratory test finding 09/03/2017 Troponin-I/TnI <0.05 NG/ML 0-0.64 Basic Metabolic Profile 12/16/2016 Sodium 136 mEq/L 134-149 Potassium 4.7 mEq/L 3.6-5.5 Chloride 103 mEq/L 94-112 Carbon Dioxide 25 mEq/L 21-32 Glucose 118 mg/dL High 70-105 BUN 23 mg/dL 6-26 Creatinine 1.5 mg/dL High 0.6-1.4 BUN/Creat Ratio 15.3 CALC 8.0-36.0 Calcium 9.8 mg/dL 8.6-10.2 GFR Non- 50 ml/min/1.73m^ Low >=60 GFR >60 ml/min/1.73m^ >=60 Laboratory test finding 12/25/2015 PSA <0.1 ng/mL Low 0.0-4.0 5 Testosterone 524.9 ng/dL 262.0-870.0 Laboratory test finding 01/25/2015 Partial Thrombo Time 29.4 seconds 26.0 -36.3 6 PTT Inr/Protime 01/25/2015 Inr 1.00 0.78-1.07 Complete Blood Count 01/25/2015 WBC 6.0 x10^3/UL 3.6-9.6 RBC 4.75 x10^6/UL 3.90-5.70 HGB 14.4 g/dL 12.1-17.2 HCT 42 % 36-50 MCV 88.0 fL 82.2-97.4 MCH 30.3 pg 27.6-33.3 MCHC 34.3 g/dL 33.0-35.5 RDW 12.2 % 11.6-13.7 PLT 177 x10^3/UL 150-400 MPV 7.8 fL 7.4-10.4 Gran # 4.2 x10^3/UL 1.5-7.2 Lymph# 1.5 x10^3/UL 0.7-4.9 Person# 0.3 x10^3/UL 0.1-0.9 Gran % 68.7 % 42.2-75.2 Lymph % 25.8 % 20.5-51.1 Person% 5.5 % 1.7-9.3 Laboratory test finding 11/27/2014 PSA <0.1 ng/mL Low 0.0-4.0 7 Laboratory test finding 09/28/2014 Surgical Interface SEE RESULT BELOW 8 Order Comprehensive Metabolic 11/23/2013 Sodium 138 mEq/L 134-149 Prof Potassium 4.3 mEq/L 3.6-5.5 Chloride 100 mEq/L 94-112 Carbon Dioxide 25 mEq/L 21-32 Glucose 105 mg/dL 70-105 BUN 19 mg/dL 6-26 Creatinine 1.2 mg/dL 0.6-1.4 BUN/Creat Ratio 15.8 CALC 8.0-36.0 Calcium 9.0 mg/dL 8.6-10.2 Total Protein 7.2 g/dL 6.3-8.1 Albumin 4.4 g/dL 3.8-5.5 Globulin 2.8 g/dL 2.0-4.8 A/G Ratio 1.6 CALC 0.6-2.3 Alk. Phosphatase 51 U/L 22-95 Alt (SGPT) 17 U/L 7-35 Ast (Sgot) 10 U/L 5-34 Total Bilirubin 0.6 mg/dL 0.2-1.3 Lipid Profile 11/23/2013 Cholesterol 156 mg/dL 120-200 Triglycerides 80 mg/dL 30-200 HDL Cholesterol 43 mg/dL 30-70 LDL (Calculated) 97 CALC 0-129 VLDL Cholesterol 16 mg/dL 0-50 HDL Risk Factor 3.6 CALC 0.0-4.4 Laboratory test finding 11/23/2013 PSA <0.1 ng/mL Low 0.0-4.0 9 Babesia Microti AB PNL 12/28/2012 Babesia microti IgM <1:10 Neg:<1:10 Babesia microti IgG <1:10 Neg:<1:10 10 Ehrlichia AB Panel (CTX) 12/28/2012 E. chaffeensis (HME) IgG Negative Neg :<1:64 Titer E. chaffeensis (HME) IgM Titer Negative Neg:<1:20 11 Hge IgG Titer Negative Neg:<1:64 12 Hge IgM Titer Negative Neg:<1:20 13 Lyme Igg/M W/[facility] 12/28/2012 Lyme IgG/IgM Ab <0.91 index 0.00-0.90 14 Lyme Disease Ab, Quant, IgM <0.91 index 0.00-0.90 15 Rapid Influenza A B 12/20/2012 Rapid Influenza A B (SEE NOTE) 16 Antigen Antigen Laboratory test finding 12/20/2012 Lyme Disease Serology Negative Negative 17 Laboratory test finding 08/17/2012 B12 410 pg/mL 230-1050 Ferritin 91 ng/mL 22-415 Folate >22.00 ng/mL High 3.00-16.00 Iron 93 g/dL 60-150 Laboratory test finding 06/02/2012 PSA < 0.05 ng/mL Low 0.00-4.00 TSH 2.72 mIU/L 0.50-6.00 LDL (Direct) 109 mg/dL 0-130 Comprehensive Metabolic Prof 06/02/2012 Albumin 4.7 g/dL 3.8-5.5 Alk. Phos. 58 U/L 22-95 Alt (SGPT) 35 U/L 10-40 Ast (Sgot) 28 U/L 5-34 BUN 17 mg/dL 6-26 Calcium 9.2 mg/dL 8.6-10.2 Chloride 102 mEq/L 94-112 Creatinine 1.2 mg/dL 0.6-1.4 Carbon Dioxide 25 mEq/L 21-32 Glucose 104 mg/dL 70-105 Sodium 139 mEq/L 134-149 Total Bilirubin 0.4 mg/dL 0.2-1.3 Total Protein 7.1 g/dL 6.3-8.1 Potassium 4.2 mEq/L 3.6-5.5 Globulin 2.5 g/dL 2.0-4.8 A/G Ratio 1.9 Calc 0.6-2.3 BUN/Creat Ratio 14.0 Calc 8.0-36.0 CBC Electronic ([facility]) 06/02/2012 WBC 5.5 3.6-9.6 RBC 4.81 3.90-5.70 Hemoglobin (Fma/CMC/CTX) 14.3 g/dL 12.1 - 17.2 Hematocrit (Fma/CMC/CTX) 44.3 % 36.1 - 50.3 Platelets 202 10^3/ul 150-400 Lymph% 22.2 20.5-51.1 Mixed% 7.0 Neutrophils % 70.8 Mean Corpuscular Vol 92 82.2-97.4 Mean Corpuscular Hemoglobin 29.8 27.6-33.3 Mean Corpuscular Hemo Concen 32.3 32.0-36.0 RDW 12.3 11.6-13.7 Mean Platelet Volume 7.4 6.5-11.0 Ua - Micro ([facility]) 06/02/2012 Appearance clear Color yellow Glucose neg Bilirubin neg Ketones trace SP Grav 1.025 Blood moderate PH 5.5 Protein neg Urobil 0.2 Nitrite neg Leukocytes (Fma/CMC/Centrex) neg Hyaline - /Lpf Granular - /Lpf WBC ([facility]) 0-1 RBC 1-3 Mucus - /Lpf Epith - /Lpf Bacteria - /Hpf Amorphous - /Lpf Crystals, Fluid (a/CMC/CTX) - Z#Comments - Laboratory test finding 06/02/2012 Testosterone, Serum 365 ng/dL 348- 1197 Lipid Profile 06/02/2012 Cholesterol 202 mg/dL High 120-200 HDL 46 mg/dL 30-70 Triglycerides 262 mg/dL High 30-200 HDL Risk Factor 4.3 CALC 0.0-4.4 LDL (Calculated) 103 CALC 0-129 18 VLDL (Calculated) 52 mg/dL High 0-50 Lyme Igg/M W/[facility] 06/02/2012 Lyme IgG/IgM Ab <0.91 index 0.00-0.90 19 Lyme Disease Ab, Quant, IgM <0.91 index 0.00-0.90 20 Ua - Micro ([facility]) 11/20/2011 Appearance CLEAR Color YELLOW Glucose NEG Bilirubin NEG Ketones NEG SP Grav >=1.030 Blood LARGE PH 5.5 Protein SSA:NEG Urobil 0.2 Nitrite NEG Leukocytes (Fma/CMC/Centrex) NEG Hyaline - /Lpf Granular - /Lpf WBC ([facility]ma,[facility]rex) 0-1 RBC 5-10 Mucus SMALL AMOUNT /Lpf Epith RARE /Lpf Bacteria RARE /Hpf Amorphous SLIGHT /Lpf Crystals, Fluid (Fma/CMC/CTX) - Z#Comments - Urine Culture & Sensitivi 11/20/2011 M <SEE NOTE> 21 Ua - Micro ([facility]ma) 10/20/2011 Appearance clear Color yellow Glucose neg Bilirubin neg Ketones neg SP Grav 1.020 Blood moderate PH 5.5 Protein neg Urobil 0.2 Nitrite neg Leukocytes (Fma/CMC/Centrex) neg Hyaline - /Lpf Granular - /Lpf WBC (Fma,[facility]rex) 0-1 RBC 1-3 Mucus - /Lpf Epith - /Lpf Bacteria 1+ /Hpf Amorphous - /Lpf Crystals, Fluid (Fma/CMC/CTX) - Z#Comments - Urine Culture & 10/20/2011 M <SEE NOTE> 22 Sensitivi Laboratory test 03/08/2011 O P: NF 23 finding Giardia/Crypto Screen Stool Cult Sensitivity NF 24 Shiga Toxin 1 And 2 ([facility]) NEGATIVE BY [facility] <SEE NOTE> 25 Culture Stool 03/08/2011 O P: Giardia/Crypto Screen BROWN 26 Campylobacter Culture NF 27 O P: Giardia/Crypto Screen NEGATIVE BY [facility] <SEE NOTE> 28 Ua - Micro ([facility]ma) 02/28/2011 Appearance slt cloudy Color yellow Glucose - Bilirubin - Ketones - SP Grav >1.030 Blood large PH 5.5 Protein 1+ (ssa) Urobil 0.2 Nitrite - Leukocytes (Fma/CMC/Centrex) trace Hyaline - /Lpf Granular - /Lpf WBC (Fma,Centrex) 8-12 RBC 5-10 Mucus sm amt /Lpf Epith occ /Lpf Bacteria 1+ /Hpf Amorphous - /Lpf Crystals, Fluid (Fma/CMC/CTX) - Lipid Profile 12/23/2010 Cholesterol 178 mg/dL 120-200 HDL 40 mg/dL 30-70 Triglycerides 242 mg/dL High 30-200 HDL Risk Factor 4.4 CALC High 0.0-4.0 LDL (Calculated) 89 CALC 0-129 VLDL (Calculated) 48 mg/dL 0-50 Comprehensive Metabolic Prof 12/23/2010 Albumin 4.3 g/dL 3.8-5.5 Alk. Phos. 47 U/L 22-95 Alt (SGPT) 18 U/L 10-40 Ast (Sgot) 17 U/L 5-34 BUN 30 mg/dL High 6-26 29 Calcium 9.0 mg/dL 8.6-10.2 Chloride 94 mEq/L 94-112 Creatinine 1.4 mg/dL 0.6-1.4 Carbon Dioxide 26 mEq/L 21-32 Glucose 104 mg/dL 70-105 Sodium 134 mEq/L 134-149 Total Bilirubin 0.6 mg/dL 0.2-1.3 Total Protein 6.5 g/dL 6.3-8.1 Potassium 4.4 mEq/L 3.6-5.5 Globulin 2.1 g/dL 2.0-4.8 A/G Ratio 2.0 Calc 0.6-2.2 BUN/Creat Ratio 21.5 Calc 8.0-36.0 CBC Electronic ([facility]) 12/23/2010 WBC 6.7 3.6-9.6 RBC 4.86 3.90-5.70 Hemoglobin (Fma/CMC/CTX) 14.6 g/dL 12.1 - 17.2 Hematocrit (Fma/CMC/CTX) 42.6 % 36.1 - 50.3 Platelets 212 10^3/ul 150-400 Lymph% 18.4 Low 20.5-51.1 Mixed% 5.7 Neutrophils % 75.9 Mean Corpuscular Vol 88 82.2-97.4 Mean Corpuscular Hemoglobin 30.1 27.6-33.3 Mean Corpuscular Hemo Concen 34.3 32.0-36.0 RDW 11.4 Low 11.6-13.7 Mean Platelet Volume 8.0 6.5-11.0 Ua - Micro ([facility]) 12/23/2010 Appearance CLEAR Color YELLOW Glucose NEG Bilirubin NEG Ketones TRACE SP Grav 1.025 Blood MOD PH 7.0 Protein NEG Urobil 0.2 Nitrite NEG Leukocytes (Fma/CMC/Centrex) NEG Hyaline - /Lpf Granular - /Lpf WBC (a,[facility]rex) - RBC 10-12 Mucus - /Lpf Epith - /Lpf Bacteria - /Hpf Amorphous - /Lpf Crystals, Fluid (Fma/CMC/CTX) - Z#Comments - Laboratory test finding 04/03/2009 PSA 2.20 ng/mL 0.00-4.00 30 TSH 1.54 mIU/L 0.50-6.00 30 Comprehensive Metabolic Prof 04/03/2009 Albumin 4.6 g/dL 3.8-5.5 30 Alk. Phos. 46 U/L 22-95 30 Alt (SGPT) 21 U/L 10-40 30 Ast (Sgot) 24 U/L 5-34 30 BUN 20 mg/dL 6-26 30 Calcium 9.1 mg/dL 8.6-10.2 30 Chloride 103 mEq/L 94-112 30 Creatinine 1.2 mg/dL 0.6-1.4 30 Carbon Dioxide 23 mEq/L 21-32 30 Glucose 95 mg/dL 70-105 30 Sodium 143 mEq/L 134-149 30 Total Bilirubin 0.8 mg/dL 0.2-1.3 30 Total Protein 6.9 g/dL 6.3-8.1 30 Potassium 4.4 mEq/L 3.6-5.5 30 Globulin 2.3 g/dL 2.0-4.8 30 A/G Ratio 2.0 Calc 0.6-2.2 30 BUN/Creat Ratio 16.1 Calc 8.0-36.0 30 Lipid Profile 04/03/2009 Cholesterol 189 mg/dL 120-200 30 HDL 59 mg/dL 30-70 30 Triglycerides 72 mg/dL 30-200 30 HDL Risk Factor 3.2 CALC Low 4.2-7.0 30 LDL (Calculated) 116 CALC 0-129 30 VLDL (Calculated) 14 mg/dL 0-50 30 Ua - Micro (a) 04/03/2009 Appearance CLEAR Color YELLOW Glucose - Bilirubin - Ketones TRACE SP Grav 1.020 Blood MODERATE' PH 5.5 Protein - Urobil 0.2 Nitrite - Leukocytes (Fma/CMC/Centrex) - Hyaline - /Lpf Granular - /Lpf WBC (Fma,Centrex) 2-4 RBC 18-20 Mucus SM AMT /Lpf Epith RARE /Lpf Bacteria TRACE /Hpf Amorphous - /Lpf Crystals, Fluid (Fma/CMC/CTX) - Z#Comments - CBC (a) 04/03/2009 WBC 6.0 3.6-9.6 RBC 5.29 3.90-5.70 Hemoglobin (Fma/CMC/CTX) 15.3 g/dL 12.1 - 17.2 Hematocrit (Fma/CMC/CTX) 44.4 % 36.1 - 50.3 Mean Corpuscular Vol 83.9 82.2-97.4 Mean Corpuscular Hemaglobin 28.9 27.6-33.3 Mean Corpuscular Hemo Concen 34.5 33.0-36.0 Platelets 224 10^3/ul 150-400 Lymph% 24.6 20.5-51.1 Mixed% 8.3 Neutrophils % 67.1 RDW 13.0 11.6-13.7 Mean Platelet Volume 11.5 High 7.4-10.4 Comprehensive Metabolic Prof 11/23/2006 Albumin 4.1 g/dL 3.8-5.5 Alk. Phos. 53 U/L 22-95 Alt (SGPT) 19 U/L 10-40 Ast (Sgot) 21 U/L 5-34 BUN 19 mg/dL 6-26 Calcium 9.0 mg/dL 8.6-10.2 Chloride 102 mEq/L 94-112 Creatinine 1.1 mg/dL 0.6-1.4 Carbon Dioxide 29 mEq/L 21-32 Glucose 89 mg/dL 70-105 Sodium 141 mEq/L 134-149 Total Bilirubin 1.0 mg/dL 0.2-1.3 Total Protein 6.4 g/dL 6.3-8.1 Potassium 4.9 mEq/L 3.6-5.5 Globulin 2.3 g/dL 2.0-4.8 A/G Ratio 1.8 Calc 0.6-2.2 BUN/Creat Ratio 16.8 Calc 8.0-36.0 Sodium 141 mEq/L 134-149 Complete Blood Count 11/23/2006 WBC 4.6 x10^3/uL 3.6-9.6 Gran# 3.2 x10^3/uL 1.5-7.2 Gran% 69.8 % 42.2-75.2 HCT 45 % 36-50 HGB 15.1 g/dL 12.1-17.2 Lymph# 1.0 x10^3/uL 0.7-4.9 Lymph% 22.4 % 20.5-51.1 MCH 30.8 pg 27.6-33.3 MCV 92.2 fL 82.2-97.4 MCHC 33.5 g/dL 33.0-35.5 Mo# 0.4 x10^3/uL 0.1-0.9 Mo% 7.8 % 1.7-9.3 MPV 9.2 fL 7.4-10.4 PLT 186 x10^3/uL 150-400 RBC 4.90 x10^6/uL 3.90-5.70 RDW 12.1 % 11.6-13.7 Laboratory test finding 11/23/2006 PSA 1.65 ng/mL 0.00-4.00 1 FASTING 2 RESULTS VERIFIED BY REPEAT ANALYSIS 3 RESULTS VERIFIED BY REPEAT ANALYSIS 4 RESULTS VERIFIED BY REPEAT ANALYSIS 5 consistent w/ previous results 6 FASTING 2 CITRATED PLASMA FROZEN 7 consistent w/ previous results 8 SEE RESULT BELOW Name: EMMETT HERNANDEZ : [address]: Devang Weathers MD Acct: [id number] Unit: [id number] AGE: 59 Location: [facility] Re09/28/14 SEX: M Status: REG REF SPEC: [id number] JOANNA: 09/28/[id number] SUBM DR: Devang Weathers MD REQ: [id number] RECD: 09/28/14 STATUS: EDUARDO ANGUIANO DR: Rodolfo Muhammad MD _ ORDERED: LEVEL IV/2 FINAL DIAGNOSIS 1. Stomach, biopsy: -- Fundic gland polyp. 2. Gastroesophageal junction, biopsy: -- Squamous and columnar mucosa with chronic inflammation. -- Negative for intestinal metaplasia and dysplasia. CLINICAL HISTORY Screening EGD and colonoscopy POST-OPERATIVE DIAGNOSIS Esophagus - salmon pink - biopsy, Stomach - few polyps, biopsy polypectomy Duodenum - normal Screening colonoscopy to cecum - normal Conclusion/Plan - five years. GROSS DESCRIPTION 1. The specimen is received in formalin labeled, Biopsy Gastric Polyp, and consists of a 0.3 x 0.2 x 0.2 cm colon irregular soft tissue fragment, which is submitted entirely in one cassette. 2. The specimen is received in formalin labeled, Biopsy Esophagogastric Junction, and consists of a 0.4 x 0.3 x 0.2 cm colon-pink irregular soft tissue fragment, which is submitted entirely in one cassette. CONTINUED ON NEXT PAGE * ML=Testing performed at Main Lab DEPARTMENT OF PATHOLOGY, [address] [place] [address] Hernan Boo M.D. Director [facility] # [id number] RUN DATE: 09/29/14 [facility] LAB LIVE PAGE 2 Patient: HERNANDEZEMMETT K [id number] (Continued) GROSS DESCRIPTION (Continued) Signed (signature on file) Lois Rollins MD [id number] END OF REPORT * ML=Testing performed at Main Lab DEPARTMENT OF PATHOLOGY, [address] [place] [address] Hernan Boo M.D. Director [facility] # [id number] RESULTS VERIFIED BY REPEAT ANALYSIS 10 This test was developed and its performance characteristics determined by [employer]. It has not been cleared or approved by the U.S. Food and Drug Administration. The FDA has determined that such clearance or approval is not necessary. This test is used for clinical purposes. It should not be regarded as investigational or research. 11 IgG titers if 1:64 or greater indicate exposure or acute and convalescent samples showing a four-fold increase, and/or the presence of IgM indicate recent or current infection. This test was developed and its performance characteristics determined by [employer]. It has not been cleared or approved by the U.S. Food and Drug Administration. The FDA has determined that such clearance or approval is not necessary. This test is used for clinical purposes. It should not be regarded as investigational or for research. 12 HGE IgG levels are detectable 7 to 10 days post infection and persist approximately one year. This test was developed and its performance characteristics determined by [employer]. It has not been cleared or approved by the U.S. Food and Drug Administration. The FDA has determined that such clearance or approval is not necessary. This test is used for clinical purposes. It should not be regarded as investigational or for research. 13 IgM levels usually rise 3 to 5 days post infection and fall to normal levels in approximately 30 to 60 days. This test was developed and its performance characteristics determined by [employer]. It has not been cleared or approved by the U.S. Food and Drug Administration. The FDA has determined that such clearance or approval is not necessary. This test is used for clinical purposes. It should not be regarded as investigational or for research. 14 Negative <0.91 Equivocal 0.91 - 1.09 Positive >1.09 Note: The [facility] currently advises that Western blot testing be performed following all equivocal or positive EIA results. Final diagnosis should include appropriate clinical findings and a positive EIA which is also positive by Western blot. 15 Negative <0.91 Equivocal 0.91 - 1.09 Positive >1.09 Note: IgM levels may peak at 3-6 weeks post infection, then gradually decline. FDA currently advises that Western Blot testing be performed following all equivocal or positive EIA results. Final diagnosis should include appropriate clinical findings and a positive EIA which is also positive by Western Blot. 16 RUN DATE: 12/21/12 [facility] LAB LIVE PAGE 1 RUN TIME: [address] [place] [address] Specimen Inquiry Name: EMMETT HERNANDEZ : [address]: Norberto Michelle MD Acct: [id number] Unit: [id number] AGE: 57 Location: [facility] Re12/20/12 SEX: M Status: DEP ER SPEC: [id number] JOANNA: 12/20/[address]: Norberto Michelle MD REQ: [id number] RECD: 12/21/12 STATUS: EMMA ANGUIANO DR: Rodolfo Muhammad MD _ SOURCE: [facility]: ORDERED: Rapid Flu A B QUERIES: Medent Number [id number] Procedure Result Verified Site Rapid Influenza A B Antigen Final 12/21/12- 1132 ML Organism 1 Negative Influenza A B Antigen testing by enzyme immunoassay. Cell culture testing can be performed to confirm negative test results and to assist in detecting other viruses that can produce similar clinical symptoms. Please notify Microbiology Lab if further testing is desired. END OF REPORT * ML=Testing performed at Main Lab DEPARTMENT OF PATHOLOGY, [address] [place] [address] Hernan Boo M.D. Director [facility] Permit #[id number] 17 Serologic response to B. burgdorferi infection is not detected, but cannot rule out early infection during which low or undetectable antibody levels to B. burgdorferi may be present. If clinically indicated, a new serum specimen should be submitted in 7-14 days. Test Performed by: [address] [address] [employer]: Devaughn Cabello III, M.D. 18 invalid 19 Negative <0.91 Equivocal 0.91 - 1.09 Positive >1.09 Note: The [facility] currently advises that Western blot testing be performed following all equivocal or positive EIA results. Final diagnosis should include appropriate clinical findings and a positive EIA which is also positive by Western blot. 20 Negative <0.91 Equivocal 0.91 - 1.09 Positive >1.09 . Note: IgM levels may peak at 3-6 weeks post infection, then gradually decline. FDA currently advises that Western Blot testing be performed following all equivocal or positive EIA results. Final diagnosis should include appropriate clinical findings and a positive EIA which is also positive by Western Blot. 21 RUN DATE: 11/22/11 [facility] NMI LIVE PAGE 1 RUN TIME: 857 Specimen Inquiry RUN USER: INTERFACE Name: EMMETT HERNANDEZ Status: REG REF Re11/20/11 Age/Sex: 56/M Unit#: [id number] Location: [facility] : 51 SPEC #: [id number] JOANNA: 11/20/11 STATUS: EMMA REModesta #: [id number] RECD: 11/20/[address] [facility] [address]: Jb HUFFMAN,Rodolfo Granado SOURCE: URINE ENTR: 11/20/11 [facility]: URINE C S QUERIES: MEDENT REQUISITION # [id number] SPECIMEN DESCRIPTION: URINE, CLEAN CATCH ACT WKST: UR 11/22/11 #1 Procedure Result Verified Site > URINE CULTURE SENSITIVI Final 11/22/11- 0858 ML FINAL: NO GROWTH DAY 2 (<1,000 CFU/mL) ML - [facility] State Permit #[id number] [address] [place] [address] DEPARTMENT OF PATHOLOGY, [address] [place] [address] [facility] Permit #[id number] Hernan Boo M.D. Director Rafi Camacho M.D. Radio/Tv Technician 22 RUN DATE: 10/22/11 [facility] NMI LIVE PAGE 1 RUN TIME: 0858 Specimen Inquiry RUN USER: INTERFACE Name: JAVAD HERNANDEZQUINCY Gold Status: REG REF Re10/20/11 Age/Sex: 56/M Unit#: [id number] Location: [facility] : 51 SPEC #: [id number] JOANNA: 10/20/11 STATUS: COMP REQ #: [id number] RECD: 10/20/[address] [facility] [address]: Jb HUFFMAN,Rodolfo Granado SOURCE: URINE ENTR: 10/20/[address]: [facility]: ORDERED: URINE C S QUERIES: MEDENT REQUISITION # [id number] SPECIMEN DESCRIPTION: URINE, CLEAN CATCH Procedure Result Verified Site > URINE CULTURE SENSITIVI Final 10/22/11- 0857 ML Organism 1 KLEBSIELLA PNEUMONIAE COLONY COUNT >100,000 ORGANISMS/ML (MANY) 1. KLEBSIELLA PNEUMONIAE RX M.I.C. ------ --------- AMIKACIN S <=2 LEVOFLOXACIN R >=8 AMPICILLIN R >=32 CEFAZOLIN S <=4 CEFTRIAXONE S <=1 CIPROFLOXACIN R >=4 GENTAMICIN S <=1 TIGECYCLINE S <=0.5 CEFTAZIDIME S <=1 IMIPENEM S <=1 NITROFURANTOIN R 128 TRIMETH-SULFA S <=20 *These antibiotics are not available in the [facility] Formulary. Contact the Microbiology Department for any additional antibiotic reporting. [facility] Permit #[id number] [address] [place] [address] DEPARTMENT OF PATHOLOGY, [address] [place] [address] [facility] Permit #[id number] Hernan Boo M.D. Director Rafi Camacho M.D. Radio/Tv Technician 23 NO GROWTH OF CAMPYLOBACTER AFTER 48 HOURS 24 NEGATIVE FOR THE ENTERIC PATHOGENS - SALMONELLA, SHIGELLA, AEROMONAS, PLESIOMONAS AND YERSINIA. VIBRIO AND E. COLI 0157 NOT ROUTINELY TESTED FOR IN A STOOL CULTURE. PLEASE SUBMIT SAMPLE WITH SPECIFIC REQUEST FOR DESIRED ORGANISM(S). 25 NEGATIVE BY IMMUNOCHROMATOGRAPHIC ASSAY NEGATIVE BY IMMUNOCHROMATOGRAPHIC ASSAY 26 SOFT SEMI-FORMED 27 NO GROWTH OF CAMPYLOBACTER AFTER 48 HOURS 28 NEGATIVE BY IMMUNOASSAY NEGATIVE BY IMMUNOASSAY 29 RESULT HAROLDO'D 30 FASTING Procedures Date CPT Code Description Status 09/03/2017 54006 Electrocardiogram Complete Completed 01/28/2017 86305 Electrocardiogram Complete Completed 09/28/2014 Colonoscopy Completed 10/20/2011 73577 Electrocardiogram Complete Completed 12/27/2010 Colonoscopy Completed 12/23/2010 55299 Electrocardiogram Complete Completed 04/03/2009 57460 Electrocardiogram Complete Completed Encounters Type Date Location Provider CPT E/M Dx Office Visit 11/09/2017 11:15a Main Office BUSHRA Rios 14316 Z12.83 Office Visit 09/03/2017 4:30p Main Office Rodlofo Muhammad M.D. 54659 Z00.01 R07.9 K21.9 Z85.46 Z13.220 Z12.11 Z11.59 E78.1 Office Visit 01/28/2017 2:00p [facility] Office Rodolfo Muhammad M.D. 69675 Z01.818 N35.9 K21.9 Office Visit 08/17/2015 1:45p Main Office BUSHRA Rios 37257 R19.7 Office Visit 02/09/2015 2:30p Main Office BUSHRA Rios 40594 E920.8 893.0 Office Visit 01/25/2015 8:00a [place] [address] 784.7 Office Visit 11/27/2014 2:00p [facility] Rodolfo Muhammad M.D. 46745 V70.0 233.4 530.81 Office Visit 04/14/2014 9:20a Main Office Rodolfo Muhammad M.D. 34966 723.4 V04.81 Office Visit 09/22/2013 6:45p Main Office Rodolfo Muhammad M.D. 68295 553.00 Office Visit 08/24/2013 8:40a [facility] Office Rodolfo Muhammad M.D. 67704 V70.0 233.4 530.81 726.19 V58.66 Office Visit 01/18/2013 2:00p [facility] Brayan Mtz 68983 782.9 Office Visit 12/28/2012 10:15a Main Office Lois Bernsteinbhart, [facility] 75261 E906.4 919.4 Office Visit 10/19/2012 10:20a [facility] Akira Mahoney M.D. 09923 V58.32 873.0 Office Visit 06/02/2012 1:20p [facility] Rodolfo Muhammad M.D. 92405 V70.0 788.41 311 536.8 V77.91 785.9 272.1 599.72 Office Visit 11/20/2011 4:30p Main Office Rodolfo Muhammad M.D. 41614 V72.83 550.90 311 536.8 599.0 Office Visit 10/20/2011 11:00a [facility] Rodolfo Muhammad M.D. 84948 V72.83 550.90 311 788.41 536.8 599.72 Office Visit 08/28/2011 2:30p Main Office Rodolfo Muhammad M.D. 43201 550.90 Office Visit 03/19/2011 10:00a [facility] Rodolfo Muhammad M.D. 73862 311 V04.81 Office Visit 03/08/2011 1:15p Main Office Rodolfo Muhammad M.D. 32688 787.91 Office Visit 02/28/2011 1:40p Main Office Lobo Tobar M.D. 80508 788.41 787.91 Office Visit 12/23/2010 1:30p [facility] Rodolfo Muhammad M.D. 67134 V70.0 233.4 536.8 V77.91 599.72 Office Visit 04/03/2009 9:50a [facility] Rodolfo Muhammad M.D. 52471 V70.0 785.0 788.43 V76.44 V76.51 V06.5 780.79 599.72 Office Visit 11/23/2006 10:40a Main Office Lois Freitas M.D. 72545 602.9 V58.69 311 785.0 Office Visit 05/27/2006 2:20p Main Office Lois Freitas M.D. 70643 788.43 785.0 Plan of Care 02/18/2018 - Elena Olivares, NPH65.02 Acute serous otitis media, left earNew Medication:Loratadine 10 mgComments:This condition is typically not dangerous and usually resolves on its own within a couple weeks. Call at any time if you develop worsening/sustained pain.AllComments:1. Patient has been queried about patient's goals/preferences and functional/lifestyle goals at relevant visits. If relevant, describe: Has been discussed, noted above2. Treatment goals as explainedto the patient: see above3. Are there barriers to meeting treatment goals? Yes If Yes, please describe: Barriers include possible insurance limits, disease process, and difficulty with lifestyle changes4. Self- Management goals as described to the patient: Yes, see above As always, we strongly encourage a healthy diet and making physical activity a part of your every day life. If you have questions about how or where to start, please contact the office.
--- OUTSIDE RECORDS SUMMARY | 2018-03-20 05:12 | XMS REPORT ---
:1955 External Reference #:[id number] Author Organization [facility] Address [address] [place] [address] [place] [address] Phone [phone] Care Team Providers Name Role Phone Rodolfo Muhammad MD Primary Care Physician Unavailable Payers Type Date Identification Numbers Payment Provider Subscriber Health Maintenance Policy Number: [facility] C[facility]ar Palmer Organization (O) [id number] Group Number: [id number] [address] [address] Group Name: VINNY Morillo [id number] PayID: [id number] Problems Description No Information Family History Date Family Member(s) Problem(s) Comments Father Coronary Artery Disease (CAD) Father dementia Mother Congestive Heart Failure (CHF) Mother dementia Mother Diabetes Type II Social History Type Date Description Comments Marital Status Lives With Alone Occupation Retired ETOH Use Denies alcohol use Smoking Patient has never smoked Recreational Drug Use Denies Drug Use Daily Caffeine Consumes on average 2 cups of regular coffee per day Exercise Type/Frequency Exercises regularly General Hx Text Do you follow a special diet? NO Do you have problems with snoring, day time fatigue? Yes Allergies, Adverse Reactions, Alerts Date Description Reaction Status Severity Comments 09/10/2017 NKDA active Medications Medication Date Status Form Strength Qnty SIG Indications Ordering Provider Xarelto 03/02/ Active Tablets 20mg 30tabs 1 by mouth Harish Zuniga 2018 every day Brand, M.DAna Metoprolol 03/02/ Active Tablets 25mg 180tab 1 tablet Harish Zuniga Tartrate 2017 s by mouth Brand, bid. M.D. Lisinopril 02/10/ Active Tablets 2.5mg 90tabs 1 by mouth I25.10 Harish Zuniga 2018 every day Brand, M.DAna Brilinta 10/27/ Active Tablets 90mg 180tab 1 tab by Harish Zuniga 2018 s mouth Brand, twice a M.D. day Nitrostat 10/27/ Active Tablets 0.6mg 25tabs one sl Harish Zuniga 2017 Sub before Brand, activity ( M.DAna Pt takes as needed ) Omeprazole / Active Capsules 20mg 1 by mouth Unknown 0000 DR every day Desmopressin / Active 0.1mg 1po QHS as Unknown Acetate 0000 needed Aspirin Ec / Active Tablets DR 81mg 1 tablet Unknown 0000 by mouth daily Krill Oil / Active 500mg 1 po qd Unknown 0000 Atorvastatin / Active Tablets 80mg 90tabs 1 by mouth Harish Zuniga Calcium 0000 every day Mikaela Campbell Captopril 10/26/ Hx Tablets 12.5mg 60tabs 1 by mouth Janusz 2018 - twice a Stefek, day Merle.Efrain, 2018 FAC, [facility] Captopril 10/26/ Hx Tablets 12.5mg 90tabs 1/2 by I25.10 Harish Zuniga 2017 - mouth Brand, 02/10/ twice a M.D. 2018 day Metoprolol 10/19/ Hx Tablets 25mg 180tab 1 tablet Harish Zuniga Tartrate 2017 - s by mouth Brand, 02/10/ bid. MAnaDAna 2017 Medications Administered in Office Medication Date Status Form Strength Qnty SIG Indications Ordering Provider Technetium TC Administered Injection Harish Zuniga 99M 018 Mikaela Campbell Tetrofosmin, Per Unit Dose Up To 40 Millicuries Vital Signs Date Vital Result Comment 03/05/2018 Height 71 inches 5'11" Weight 220.00 lb with shoes Heart Rate 50 /min irreg BP Systolic Sitting 112 mmHg Lue reg cuff BP Diastolic Sitting 80 mmHg Lue reg cuff BP Systolic Standing 140 mmHg Lue reg cuff BP Diastolic Standing 80 mmHg Lue reg cuff Respiratory Rate 16 /min BMI (Body Mass Index) 30.7 kg/m2 02/10/2018 Height 71 inches 5'11" Weight 219.00 lb BP Systolic Sitting 99 mmHg lue reg cuff BP Diastolic Sitting 62 mmHg lue reg cuff Respiratory Rate 16 /min BMI (Body Mass Index) 30.5 kg/m2 Ejection Fraction 55-60% 12/30/2017 echo 12/25/2017 Height 71 inches 5'11" Weight 214.00 lb Heart Rate 64 /min BP Systolic 120 mmHg BP Diastolic 82 mmHg Respiratory Rate 16 /min Body Temperature 98.2 F BMI (Body Mass Index) 29.8 kg/m2 10/30/2017 Height 71 inches 5'11" Weight 220.00 lb with shoes Heart Rate 60 /min BP Systolic Sitting 132 mmHg Lue lrg cuff BP Diastolic Sitting 72 mmHg Lue lrg cuff BP Systolic Standing 130 mmHg Lue lrg cuff BP Diastolic Standing 82 mmHg Lue lrg cuff Respiratory Rate 16 /min BMI (Body Mass Index) 30.7 kg/m2 Ejection Fraction 30-35% 10/16/2017-echo 10/16/2017 Height 71 inches 5'11" Weight 223.00 lb No shoes Heart Rate 74 /min BP Systolic Sitting 140 mmHg Rue lrg cuff BP Diastolic Sitting 94 mmHg Rue lrg cuff BP Systolic Standing 150 mmHg Rue lrg cuff BP Diastolic Standing 100 mmHg Rue lrg cuff Respiratory Rate 15 /min BMI (Body Mass Index) 31.1 kg/m2 09/11/2017 Height 71 inches 5'11" Weight 224.00 lb No shoes Heart Rate 64 /min BP Systolic 126 mmHg Rue lrg cuff BP Diastolic 84 mmHg Rue lrg cuff BP Systolic Sitting 124 mmHg Lue lrg cuff BP Diastolic Sitting 84 mmHg Lue lrg cuff BP Systolic Standing 122 mmHg Lue lrg cuff BP Diastolic Standing 80 mmHg Lue lrg cuff Respiratory Rate 16 /min BMI (Body Mass Index) 31.2 kg/m2 Results Test Date Test Result H/L Range Note Basic Metabolic Panel 10/22/2017 Sodium 139 mmol/L 139-145 Potassium 4.8 mmol/L 3.5-5.0 Chloride 103 mmol/L 101-111 Co2 Carbon Dioxide 30 mmol/L 22-32 Anion Gap 6 mmol/L 2-11 Glucose 112 mg/dL High 70-100 Blood Urea Nitrogen 19 mg/dL 6-24 Creatinine 1.24 mg/dL High 0.67-1.17 BUN/Creatinine Ratio 15.3 8-20 Calcium 9.8 mg/dL 8.6-10.3 Egfr Non- 58.7 >60 Egfr 75.5 >60 1 CBC No Diff 10/22/2017 White Blood Count 8.3 10^3/uL 3.5-10.8 Red Blood Count 5.32 10^6/uL 4.0-5.4 Hemoglobin 15.8 g/dL 14.0-18.0 Hematocrit 46 % 42-52 Mean Corpuscular Volume 86 fL 80-94 Mean Corpuscular Hemoglobin 30 pg 27-31 Mean Corpuscular HGB Conc 35 g/dL 31-36 Red Cell Distribution Width 13 % 10.5-15 Platelet Count 198 10^3/uL 150-450 Mean Platelet Volume 9.0 um3 7.4-10.4 Inr/Protime 10/22/2017 Inr 0.98 0.77-1.02 Pre Cath Panel 10/16/2017 Partial Thrombo Time PTT <pending> 1 Because ethnic data is not always readily available, this report includes an eGFR for both -Americans and non- Americans. The National Kidney Disease Education Program (NKDEP) does not endorse the use of the MDRD equation for patients that are not between the ages of 18 and 70, are , have extremes of body size, muscle mass, or nutritional status, or are non- or non-. According to the National Kidney Foundation, irrespective of diagnosis, the stage of the disease is based on the level of kidney function: Stage Description GFR(mL/min/1.73 m(2)) 1 Kidney damage with normal or decreased GFR 90 2 Kidney damage with mild decrease in GFR 60-89 3 Moderate decrease in GFR 30-59 4 Severe decrease in GFR 15-29 5 Kidney failure <15 (or dialysis) Procedures Date CPT Code Description Status 03/05/2018 26812 EKG Tracing & Interpretation Completed 01/01/2018 11380 Stress Test Completed 01/01/2018 48328 Myocardial Perfusion Imaging Tomographic (Spect) Completed Multiple Studies 12/30/2017 87545 ECHO Transthoracic, Real-Time 2D With Doppler And Color Completed Flow 12/30/2017 96405 ECHO Transthoracic, Real-Time 2D With Doppler And Color Completed Flow 10/30/2017 53577 EKG Tracing & Interpretation Completed 10/23/2017 62663 EKG, Interpretation Only Completed 10/22/2017 95234 Percutaneous Transcatheter Placement Of Intracoronary Completed Stent 10/22/2017 96732 EKG, Interpretation Only Completed 10/22/2017 47427 Left Heart Cath. Incl S/I Coronaries, Angio S/I V Gram Completed If Done 10/16/2017 38658 ECHO Stress Test Incl Perf Contiuous ekg Monitoring Completed W/Phys Superv 10/16/2017 48813 ECHO Stress Test Incl Perf Contiuous ekg Monitoring Completed W/Phys Superv 10/16/2017 39591 ECHO Transthoracic, Real-Time 2D With Doppler And Color Completed Flow 10/16/2017 81275 ECHO Transthoracic, Real-Time 2D With Doppler And Color Completed Flow 09/11/2017 06695 EKG Tracing & Interpretation Completed 10/31/2013 17054 Repair Hernia Inguinal > 5Yrs, Reducible Completed 08/03/2012 60496 Stress Test Completed 07/25/2012 63424 Polysomnography Sleep Staging 4+ Parameters Completed Encounters Type Date Location Provider CPT E/M Dx Office Visit 03/05/2018 [facility] Margaret Campbell, 93019 I25.10 9:30a Guillermo Al I48.0 Office Visit 02/10/2018 3:00p [facility] Margaret Campbell, 23466 I25.10 Guillermo Al R94.31 Office Visit 12/25/2017 1:[facility]p [facility] Grzegorz Recinos, 83317 R10.31 Of Guillermo HUFFMAN Office Visit 10/30/2017 8:45a [facility] Margaret Campbell, 70948 I25.10 Guillermo Al R07.9 I42.9 Office Visit 10/23/2017 11:07a [facility] Saira Walter M.D., 41476 I25.10 [facility] Office Visit 10/16/2017 10:00a [facility] Margaret Campbell, 06409 R07.9 Guillermo lA R06.02 I42.9 Office Visit 09/11/2017 12:00p [facility] Margaret Campbell, 51015 R07.9 Guillermo Al R06.02 Office Visit 08/06/2012 1:48p [facility] 61984 327.51 Disorder Aga Al 786.09 Office Visit 07/23/2012 1:11p [facility] 14217 786.09 Disorder Aga Al 780.79 Plan of Care Future Appointment(s):04/21/2018 4:00 pm - Harish Campbell M.D. at [facility]03/05/2018 - Harish Campbell M.D.I25.10 Athscl heart disease of kake coronary artery w/o ang wdiokX48.0 Paroxysmal atrial fibrillationFollow up:1 monthRecommendations:Stay on Metoprolol 25 mg twice a day and Xeralto for now
[2018-03-20 05:42] VITALS: BP 0/0
== END | disposition home or self-care (01) ==
LOC: ED 03:45
DX: H57.11 Ocular pain, right eye (principal)
CPT/HCPCS: 99282; A9270-GY